=== PATIENT | female | born 1990 ===

== ENCOUNTER 2020-02-20 04:51 | Emergency (ER) | payer SELFPAY ==
[2020-02-20 05:46] LABS: Bacteria,Urine 1+ /HPF (Negative); Bilirubin,Urine NEG (Negative); Blood,Urine NEG (Negative); Color,Urine Yellow (Yellow); Mucus,Urine 1+ /HPF; Protein,Urine <15 mg/dL mg/dL (Negative)
[2020-02-20 06:16] LABS: Basophils % (Auto) 0.3 % (0.0-1.8); Eosinophils % (Auto) 2.1 % (0.0-4.3); Lymphocytes % (Auto) 17.9 % (13.4-35.0); Monocytes % (Auto) 9.5 % (0.0-7.3)
[2020-02-20 06:18] LABS: Eosinophils # (Auto) 0.3 K/mm3 (0.0-0.4); Hematocrit 32.8 % (30.3-42.9); Hemoglobin 11.5 gm/dl (10.1-14.3); Lymphocytes # (Auto) 2.7 K/mm3 (1.2-5.4); Mean Corpuscular HGB Conc 35 % (30-34); Mean Corpuscular Volume 87 fl (79-97); Monocytes # (Auto) 1.4 K/mm3 (0.0-0.8); Platelet Count 364 K/mm3 (140-440); Red Blood Count 3.77 M/mm3 (3.65-5.03); Red Cell Distribution Width 12.3 % (13.2-15.2)
[2020-02-20 06:24] LABS: Alanine Aminotransferase 24 units/L (7-56); Albumin 3.4 g/dL (3.9-5); Blood Urea Nitrogen 11 mg/dL (7-17); Calcium 8.8 mg/dL (8.4-10.2); Hemolysis Index 2
[2020-02-20 06:27] LABS: BUN/Creatinine Ratio 22
--- NOTE | 2020-02-20 08:45 | Emergency Department Report ---
ED Abdominal Pain HPI - General Chief Complaint: Abdominal Pain Stated Complaint: ABDOMINAL PAIN Time Seen by Provider: 02/20/20 08:29 Source: patient Mode of arrival: Ambulatory Limitations: No Limitations - History of Present Illness Initial Comments: 29-year-old female presents to the emergency room complaining of suprapubic abdominal pain x1 week. Patient states that she does have dysuria urinary urgency and frequency. She denies any fever chills no nausea no vomiting. She reports no known drug allergies and currently takes no medica tions on a daily basis. MD Complaint: abdominal pain Onset/Timin -: week(s) Location: suprapubic Severity scale (0 -10): 7 Quality: stabbing, sharp Consistency: intermittent Improves With: nothing Worsens With: other (Urinates) Associated Symptoms: denies other symptoms - Related Data Previous Rx's Medication Instructions Recorded Last Taken Type Amoxicillin/K Clav Tab [Augmentin 1 tab PO Q12HR 7 Days #14 tab 02/20/20 Unknown Rx 875 mg] Allergies Allergy/AdvReac Type Severity Reaction Status Date / Time No Known Allergies Allergy Unverified 02/20/20 04:59 ED Review of Systems ROS: Stated complaint: ABDOMINAL PAIN Other details as noted in HPI Comment: All other systems reviewed and negative ED Past Medical Hx - Past Medical History Previous Medical History?: No - Surgical History Past Surgical History?: No - Social History Smoking Status: Current Every Day Smoker Substance Use Type: Alcohol - Medications Home Medications: Home Medications Medication Instructions Recorded Confirmed Last Taken Type Amoxicillin/K Clav Tab [Augmentin 1 tab PO Q12HR 7 Days #14 tab 02/20/20 Unknown Rx 875 mg] ED Physical Exam - General Limitations: No Limitations General appearance: alert, in no apparent distress - Head Head exam: Present: atraumatic, normocephalic - Eye Eye exam: Present: normal appearance - ENT ENT exam: Present: mucous membranes moist - Neck Neck exam: Present: normal inspection, full ROM - Respiratory Respiratory exam: Present: normal lung sounds bilaterally. Absent: respiratory distress - Cardiovascular Cardiovascular Exam: Present: regular rate - GI/Abdominal GI/Abdominal exam: Present: soft, tenderness (Suprapubic). Absent: distended - Rectal Rectal exam: Present: deferred - Extremities Exam Extremities exam: Present: normal inspection, full ROM - Back Exam Back exam: Present: normal inspection - Neurological Exam Neurological exam: Present: alert, oriented X3, normal gait - Psychiatric Psychiatric exam: Present: normal affect, normal mood - Skin Skin exam: Present: warm, dry, intact, normal color. Absent: rash ED Medical Decision Making - Lab Data Result diagrams: 02/20/20 05:09 02/20/20 05:09 - Medical Decision Making 29-year-old female presents to the emergency room complaining of suprapubic abdominal pain x1 week. Patient states that she does have dysuria urinary urgency and frequency. She denies any fever chills no nausea no vomiting. She reports no known drug allergies and currently takes no medi cations on a daily basis. Patient appears to have a urinary tract infection. Will send out urine cultures place patient on Augmentin increase her fluid intake follow-up with your WATERPROOF COATING MACHINE TENDER or primary care provider. Critical care attestation.: If time is entered above; I have spent that time in minutes in the direct care of this critically ill patient, excluding procedure time. ED Disposition Clinical Impression: UTI (urinary tract infection) Disposition: TO HOME OR SELFCARE Is pt being admited?: No Does the pt Need Aspirin: No Condition: Stable Instructions: Abdominal Pain (ED), Urinary Tract Infection in Women (ED) Additional Instructions: Complete antibiotics as prescribed. Tylenol or Motrin for abdominal pain. Increase your water intake advance your diet as tolerated. Void after intercourse. Prescriptions: Amoxicillin/K Clav Tab [Augmentin 875 mg] 1 tab PO Q12HR 7 Days #14 tab Referrals: PRIMARY CARE [Primary Care Provider] - 3-5 Days [facility] [Provider Group] - 3-5 Days Forms: Work/School Release Form(ED)
[2020-02-20 08:49] VITALS: BP 108/60
[2020-02-20 11:45] LABS: HCG Qualitative,Urine Negative (Negative)
== END 2020-02-20 08:59 | disposition home or self-care (01) ==
LOC: ED 04:51
DX: N39.0 Urinary tract infection, site not specified (principal); F17.200 Nicotine dependence, unspecified, uncomplicated; Z79.899 Other long term (current) drug therapy
CPT/HCPCS: 36415; 80053; 81001; 81025; 83690; 85025; 87086; 99283

== ENCOUNTER 2020-12-29 00:53 | Emergency (ER) | payer SELFPAY ==
[2020-12-29] MEDS ORDERED: SODIUM CHLORIDE 0.9% 1000 ML 1,000 ML IV ONE (01:04)
--- NOTE | 2020-12-29 01:11 | Emergency Department Report ---
HPI - General Chief Complaint: Overdose Time Seen by Provider: 12/29/20 01:01 - [facility] HPI: This is a 30-year-old female who presents to the emergency department via EMS after the patient swallowed a bag full of 1 to 2 g of heroin just prior to presentation. The patient admits to using heroin this evening, as well as a daily use of about 0.5 g. She says that someone handed her the small bag of heroin when police got near. At the time my examination the patient is awake, oriented, and just complains of feeling tired. She denies any past medical hist ory. She was not given anything for her symptoms prior to presentation this evening. ED Past Medical Hx - Past Medical History Hx Hypertension: Yes Additional medical history: heroin use since 20yo - Social History Smoking Status: Current Every Day Smoker - Medications Home Medications: Home Medications Medication Instructions Recorded Confirmed Last Taken Type Amoxicillin/K Clav Tab [Augmentin 1 tab PO Q12HR 7 Days #14 tab 02/20/20 Unknown Rx 875 mg] ED Review of Systems ROS: Stated complaint: OVERDOSE Other details as noted in HPI Comment: All other systems reviewed and negative Constitutional: other (fatigue). denies: chills, fever Eyes: denies: eye pain, vision change ENT: denies: ear pain, throat pain Respiratory: denies: cough, shortness of breath Cardiovascular: denies: chest pain, palpitations Gastrointestinal: denies: abdominal pain, vomiting Genitourinary: denies: dysuria, discharge Musculoskeletal: denies: back pain, arthralgia Skin: denies: rash, lesions Neurological: denies: headache, weakness Physical Exam - Physical Exam Vital Signs: Vital Signs 12/29/20 01:05 Temperature 99.1 F Pulse Rate 93 H Respiratory 14 Rate Blood Pressure 128/69 [Left] O2 Sat by Pulse 96 Oximetry Physical Exam: GENERAL: The patient is ill-appearing.. HENT: Normocephalic. Atraumatic. Patient has moist mucous membranes. EYES: Pupils equal reactive to light bilaterally. NECK: Supple. Trachea is midline. CHEST/LUNGS: Clear to auscultation. There is no respiratory distress noted. HEART/CARDIOVASCULAR: Regular. There is no tachycardia. There is no murmur. ABDOMEN: Abdomen is soft, nontender. Patient has normal bowel sounds. SKIN: Skin is warm and dry. NEURO: The patient is very sleepy. She is easily arousable and once awake she is oriented, AAO x3. The patient has no focal neurologic deficits. Normal speech. Cranial nerves II through XII grossly intact. MUSCULOSKELETAL: There is no tenderness or deformity. There is no limitation range of motion. ED Course Vital Signs 12/29/20 01:05 Temperature 99.1 F Pulse Rate 93 H Respiratory 14 Rate Blood Pressure 128/69 [Left] O2 Sat by Pulse 96 Oximetry - Consultations Consultation #1: 12/29/20 01:53 I contacted the poison control. I spoke with Amanda, who gave recommendations after speaking with and on behalf of the pig machine crane operator on-call. They have recommended to give activated charcoal with sorbitol at 1 g/kg. They do not recommend giving Narcan at this time unless the patient's start to display signs of respiratory depression. The pig machine crane operator recommends that the patient be admitted to the hospital for about 24 hours in the hopes that they can monitor for 2 different bowel movements to see if the baggies come out. ED Medical Decision Making - Lab Data Result diagrams: 12/29/20 01:10 12/29/20 01:10 Lab Results 12/29/20 12/29/20 12/29/20 Range/Units 01:10 01:10 01:10 WBC 8.3 (4.5-11.0) K/mm3 RBC 4.41 (3.65-5.03) M/mm3 Hgb 11.7 (10.1-14.3) gm/dl Hct 35.4 (30.3-42.9) % MCV 80 (79-97) fl MCH 27 L (28-32) pg MCHC 33 (30-34) % RDW 14.5 (13.2-15.2) % Plt Count 373 (140-440) K/mm3 Lymph % (Auto) 21.0 (13.4-35.0) % Stephens % (Auto) 10.5 H (0.0-7.3) % Eos % (Auto) 6.7 H (0.0-4.3) % Baso % (Auto) 0.4 (0.0-1.8) % Lymph # (Auto) 1.7 (1.2-5.4) K/mm3 [place] # (Auto) 0.9 H (0.0-0.8) K/mm3 Eos # (Auto) 0.6 H (0.0-0.4) K/mm3 Baso # (Auto) 0.0 (0.0-0.1) K/mm3 Seg Neutrophils % 61.4 (40.0-70.0) % Seg Neutrophils # 5.1 (1.8-7.7) K/mm3 Sodium 139 (137-145) mmol/L Potassium 4.2 (3.6-5.0) mmol/L Chloride 104.8 (98-107) mmol/L Carbon Dioxide 27 (22-30) mmol/L Anion Gap 11 mmol/L BUN 13 (7-17) mg/dL Creatinine 0.7 (0.6-1.2) mg/dL Estimated GFR > 60 ml/min BUN/Creatinine Ratio 19 % Glucose 88 (65-100) mg/dL Calcium 8.3 L (8.4-10.2) mg/dL Total Bilirubin 0.50 (0.1-1.2) mg/dL AST 27 (5-40) units/L ALT 30 (7-56) units/L Alkaline Phosphatase 76 (35-129) units/L Total Protein 7.2 (6.3-8.2) g/dL Albumin 3.5 L (3.9-5) g/dL Albumin/Globulin Ratio 0.9 % HCG, Qual (Negative) Salicylates (2.8-20.0) mg/dL Acetaminophen (10.0-30.0) ug/mL Plasma/Serum Alcohol < 0.01 (0-0.07) % 12/29/20 12/29/20 12/29/20 Range/Units 01:10 01:10 01:16 WBC (4.5-11.0) K/mm3 RBC (3.65-5.03) M/mm3 Hgb (10.1-14.3) gm/dl Hct (30.3-42.9) % MCV (79-97) fl MCH (28-32) pg MCHC (30-34) % RDW (13.2-15.2) % Plt Count (140-440) K/mm3 Lymph % (Auto) (13.4-35.0) % Stephens % (Auto) (0.0-7.3) % Eos % (Auto) (0.0-4.3) % Baso % (Auto) (0.0-1.8) % Lymph # (Auto) (1.2-5.4) K/mm3 Stephens # (Auto) (0.0-0.8) K/mm3 Eos # (Auto) (0.0-0.4) K/mm3 Baso # (Auto) (0.0-0.1) K/mm3 Seg Neutrophils % (40.0-70.0) % Seg Neutrophils # (1.8-7.7) K/mm3 Sodium (137-145) mmol/L Potassium (3.6-5.0) mmol/L Chloride (98-107) mmol/L Carbon Dioxide (22-30) mmol/L Anion Gap mmol/L BUN (7-17) mg/dL Creatinine (0.6-1.2) mg/dL Estimated GFR ml/min BUN/Creatinine Ratio % Glucose (65-100) mg/dL Calcium (8.4-10.2) mg/dL Total Bilirubin (0.1-1.2) mg/dL AST (5-40) units/L ALT (7-56) units/L Alkaline Phosphatase (35-129) units/L Total Protein (6.3-8.2) g/dL Albumin (3.9-5) g/dL Albumin/Globulin Ratio % HCG, Qual Negative (Negative) Salicylates < 0.3 L (2.8-20.0) mg/dL Acetaminophen 5.0 L (10.0-30.0) ug/mL Plasma/Serum Alcohol (0-0.07) % - EKG Data -: EKG Interpreted by [place] EKG shows normal: sinus rhythm, axis, intervals, QRS complexes, ST-T waves Rate: normal - EKG Data When compared to previous EKG there are: previous EKG unavailable Interpretation: normal EKG - Radiology Data Radiology results: image reviewed interpreted by me: Chest x-ray does not show any acute process. There are no pleural effusions, obvious pneumonia and there is no pneumothorax. No widened mediastinum. Abdominal x-ray shows nonspecific nonobstructive bowel gas. No radiopaque foreign body seen. Increased stool volume. No free air. - Medical Decision Making This patient presents after she swallowed a baggy with about 1 to 2 g of heroin as she, and 2 of her other friends/acquaintances who are also patients, were about to get pulled over by the police. The patient does admit to using heroin already earlier in the evening. She does appear intoxicated. She is very sleepy, but is easily arousable. Once awake she is oriented, AAO x3. She will go right back to sleep if not continuously stimulated. However she does not appear to have any focal, motor or sensory deficits and cranial nerves are intact. Poison control was contacted and the recommendations of the pig machine crane operator include activated charcoal with sorbitol and an observation admission. They did not recommend that Narcan be given unless there is signs of respiratory depression. An acute abdominal series was done but it did not show any acute process and no radiopaque foreign body was seen to identify the baggy of heroin. Labs, thus far, have been mostly unremarkable including CBC, metabolic panel, acetaminophen, salicylate, blood alcohol level, and the patient is not . We are still waiting for a urine sample for urinalysis and UDS. Patient will be admitted to the hospital was accepted for admission by Dr. Braga. Critical Care Time: No Critical care attestation.: If time is entered above; I have spent that time in minutes in the direct care of this critically ill patient, excluding procedure time. ED Disposition Clinical Impression: Encounter for observation for suspected toxic effect from ingested substance, Heroin abuse Heroin overdose Qualifiers: Encounter type: initial encounter Injury intent: undetermined intent Qualified Code(s): T40.1X4A - Poisoning by heroin, undetermined, initial encounter Disposition: 09 OP ADMIT IP TO THIS HOSP Is pt being admited?: Yes Condition: Fair Time of Disposition: 03:42
[2020-12-29] MEDS ORDERED: CHARCOAL/SORBITOL SOLUTION 25 GM/120 ML PO ONE (01:28)
[2020-12-29 01:32] LABS: Basophils % (Auto) 0.4 % (0.0-1.8); Eosinophils # (Auto) 0.6 K/mm3 (0.0-0.4); Eosinophils % (Auto) 6.7 % (0.0-4.3); Hematocrit 35.4 % (30.3-42.9); Hemoglobin 11.7 gm/dl (10.1-14.3); Lymphocytes # (Auto) 1.7 K/mm3 (1.2-5.4); Mean Corpuscular HGB Conc 33 % (30-34); Mean Corpuscular Volume 80 fl (79-97); Monocytes # (Auto) 0.9 K/mm3 (0.0-0.8); Monocytes % (Auto) 10.5 % (0.0-7.3); Platelet Count 373 K/mm3 (140-440); Red Blood Count 4.41 M/mm3 (3.65-5.03); Red Cell Distribution Width 14.5 % (13.2-15.2)
[2020-12-29] MEDS ORDERED: ONDANSETRON 4 MG/2 ML INJ IV ONE (01:40)
[2020-12-29 01:44] LABS: Alanine Aminotransferase 30 units/L (7-56); Albumin 3.5 g/dL (3.9-5); Blood Urea Nitrogen 13 mg/dL (7-17); Calcium 8.3 mg/dL (8.4-10.2); Hemolysis Index 0
[2020-12-29 01:45] LABS: BUN/Creatinine Ratio 19
--- NOTE | 2020-12-29 02:50 | XRay Report ---
XR abd series w cxr 1V INDICATION / CLINICAL INFORMATION: swallowed a bag of heroin COMPARISON: None available. FINDINGS/IMPRESSION: Low lung volumes. Lungs are clear consolidation. No pleural effusion or pneumothorax. Bowel gas patte rn is nonobstructive. Moderate colonic stool burden. No radiopaque foreign body identified in the [address] or abdomen. Signer Name: Chava Mancilla MD Signed: 12/29/2020 2:45 AM Workstation Name: [id number]
[2020-12-29] MEDS ORDERED: oxyCODONE /ACETAMINOPHEN 5-325MG TAB PO PRN (03:44)
[2020-12-29] MEDS ORDERED: ALUM-MAG HYDROXIDE-SIMETHICONE 200-200-20MG/5ML ORAL LIQD 30 ML PO PRN (03:44)
[2020-12-29] MEDS ORDERED: HYDROmorphone 1 MG/1 ML INJ IV PRN ×2 (03:44)
[2020-12-29] MEDS ORDERED: HYDROcodone/ACETAMINOPHEN 5-325 MG TAB PO PRN (03:44)
[2020-12-29] MEDS ORDERED: MORPHINE 2 MG/1 ML INJ IV PRN (03:44)
[2020-12-29] MEDS ORDERED: ACETAMINOPHEN 325 MG TAB PO PRN (03:44)
[2020-12-29] MEDS ORDERED: ONDANSETRON 4 MG/2 ML INJ IV PRN (03:44)
[2020-12-29] MEDS ORDERED: MAGNESIUM HYDROXIDE (MOM) ORAL LIQD UDC PO PRN (03:44)
--- NOTE | 2020-12-29 03:44 | History and Physical Report ---
History of Present Illness Date of examination: 12/29/20 Date of admission: 12/29/20 Chief complaint: Heiron abuse History of present illness: This is a 30-year-old female who presents to the emergency department via EMS after the patient swallowed a bag full of 1 to 2 g of heroin just prior to presentation. The patient admits to using heroin this evening, as well as a daily use of about 0.5 g. She says that someone handed her the small bag of heroin when police got near. At the time my examination the patient is awake, oriented, and just complains of feeling tired. She denies any past medical history. She was not given anything for her symptoms prior to presentation this evening. ED work-up shows WBC 8.3, hemoglobin 11.7, platelets 373 creatinine 0.7 serum glucose 88 checks x-ray no pleural effusion or pneumothorax- bowel gas is nonobstructive, moderate colonic stool burden, no radiopaque foreign body identified in the chest or abdomen. Patient seen in the ED at bedside. Patient was sleepy but easy to arouse. She admits Gorin use but denies alcohol and tobacco use. I reviewed his vital signs, medication record and the lab values. No acute finding Past History Past Medical History: hypertension Past Surgical History: No surgical history Social history: IV drug use, other (homeless and drug abuse) Medications and Allergies Allergies Allergy/AdvReac Type Severity Reaction Status Date / Time No Known Allergies Allergy Verified 12/29/20 01:10 Home Medications Medication Instructions Recorded Confirmed Last Taken Type Amoxicillin/K Clav Tab [Augmentin 1 tab PO Q12HR 7 Days #14 tab 02/20/20 Unknown Rx 875 mg] Review of Systems Cardiovascular: no chest pain Respiratory: no wheezing Gastrointestinal: abdominal pain Rectal: no hemorrhoids Musculoskeletal: no neck stiffness Integumentary: no rash, no pruritis Neurological: no seizures Psychiatric: anxiety Hematologic/Lymphatic: no easy bruising, no easy bleeding Allergic/Immunologic: no urticaria Exam - Constitutional Vitals: Temp Pulse Resp BP Pulse Ox 99.1 F 93 H 14 128/69 96 12/29/20 01:05 12/29/20 01:05 12/29/20 01:05 12/29/20 01:05 12/29/20 01:05 General appearance: Present: no acute distress, well-nourished - EENT Eyes: Present: PERRL ENT: hearing intact, clear oral mucosa - Neck Neck: Present: supple, normal ROM - Respiratory Respiratory effort: normal Respiratory: bilateral: CTA - Cardiovascular Heart Sounds: Present: S1 & S2. Absent: rub, click - Extremities Extremities: pulses symmetrical, No edema Peripheral Pulses: within normal limits - Abdominal General gastrointestinal: Present: soft, non-tender, non-distended, normal bowel sounds Female genitourinary: Present: normal - Integumentary Integumentary: Present: clear, warm, dry - Musculoskeletal Musculoskeletal: gait normal, strength equal bilaterally - Psychiatric Psychiatric: appropriate mood/affect, intact judgment & insight - Neurologic Neurologic: CNII-XII intact, moves all extremities - Allied Health Allied health notes reviewed: nursing Results - Labs CBC & Chem 7: 12/29/20 01:10 12/29/20 01:10 Labs: Abnormal lab results 12/29/20 12/29/20 12/29/20 Range/Units 01:10 01:10 01:10 MCH 27 L (28-32) pg [place] % (Auto) 10.5 H (0.0-7.3) % Eos % (Auto) 6.7 H (0.0-4.3) % [place] # (Auto) 0.9 H (0.0-0.8) K/mm3 Eos # (Auto) 0.6 H (0.0-0.4) K/mm3 Calcium 8.3 L (8.4-10.2) mg/dL Albumin 3.5 L (3.9-5) g/dL Salicylates < 0.3 L (2.8-20.0) mg/dL Acetaminophen (10.0-30.0) ug/mL 12/29/20 Range/Units 01:10 MCH (28-32) pg [place] % (Auto) (0.0-7.3) % Eos % (Auto) (0.0-4.3) % [place] # (Auto) (0.0-0.8) K/mm3 Eos # (Auto) (0.0-0.4) K/mm3 Calcium (8.4-10.2) mg/dL Albumin (3.9-5) g/dL Salicylates (2.8-20.0) mg/dL Acetaminophen 5.0 L (10.0-30.0) ug/mL Assessment and Plan - Patient Problems (1) Drug abuse and dependence Current Visit: Yes Status: Acute Plan to address problem: Patient admits heroine dependence patient swallowed a bag full of 1 to 2 g of heroin Patient was treated in the ED At the time of my assessment patient alert oriented x3 patient reports abdominal pain. (2) Hypertension Current Visit: Yes Status: Acute Plan to address problem: Patient reports history of high blood pressure but not on any medicine Monitor vital signs every 4 hours As needed hydralazine (3) DVT prophylaxis Current Visit: Yes Status: Acute Plan to address problem: SCD
[2020-12-29] MEDS ORDERED: SODIUM CHLORIDE 0.9% 1000 ML 1,000 ML IV SCH (03:45)
[2020-12-29 04:04] VITALS: BP 121/75
[2020-12-29 09:38] LABS: Amphetamine Screen,Urine PRESUMPTIVE POSITIVE; Benzodiazepines Screen,Urine PRESUMPTIVE NEGATIVE; Cannabinoid Screen,Urine PRESUMPTIVE NEGATIVE; Cocaine Screen,Urine PRESUMPTIVE NEGATIVE; Methadone Screen,Urine PRESUMPTIVE NEGATIVE; Opiate Screen,Urine PRESUMPTIVE POSITIVE
--- NOTE | 2020-12-29 09:53 | Discharge Summary ---
Providers - Providers Date of Admission: 12/29/20 03:44 Attending physician: JOSÉ MIGUEL WONG MD Primary care physician: HEALTH INFORMATION MANAGER Hospitalization Reason for admission: DRUG OVERDOSE Condition: Stable Hospital course: This is a 30-year-old female who presents to the emergency department via EMS after the patient swallowed a bag full of 1 to 2 g of heroin just prior to presentation. The patient admits to using heroin this evening, as well as a daily use of about 0.5 g. She says that someone handed her the small bag of heroin when police got near. At the time my examination the patient is awake, oriented, and just complains of feeling tired. She denies any past medical history. She was not given anything for her symptoms prior to presentation this evening. ED work-up shows WBC 8.3, hemoglobin 11.7, platelets 373 creatinine 0.7 serum glucose 88 checks x-ray no pleural effusion or pneumothorax- bowel gas is nonobstructive, moderate colonic stool burden, no radiopaque foreign body identified in the chest or abdomen. Patient seen in the ED at bedside. Patient was sleepy but easy to arouse. She admits Gorin use but denies alcohol and tobacco use. I reviewed his vital signs, medication record and the lab values. No acute finding patient has had 4 bm since getting activate charcol. she has no abdominal pain She is clinical stable, ambulating. Extensive counselling give for 15 mins on drug abuse, risk associated and need to stop. She verbalized understanding. (1) Drug abuse and dependence -OPIOIDS AND AMPHETAMINES (2) Hypertension Disposition: DC-01 TO HOME OR SELFCARE Final Discharge Diagnosis (Prints w/discharge instructions): DRUG OVERDOSE Time spent for discharge: 35 mins Core Measure Documentation - Palliative Care Palliative Care/ Comfort Measures: Not Applicable - Core Measures Any of the following diagnoses?: none Exam - Constitutional Vitals: Temp Pulse Resp BP Pulse Ox 99.1 F 76 13 121/75 98 12/29/20 01:05 12/29/20 06:01 12/29/20 06:01 12/29/20 06:01 12/29/20 06:01 General appearance: Present: no acute distress, well-nourished - EENT Eyes: Present: PERRL, EOM intact ENT: hearing intact - Neck Neck: Present: supple, normal ROM - Respiratory Respiratory effort: normal Respiratory: bilateral: CTA - Cardiovascular Rhythm: regular Heart Sounds: Present: S1 & S2. Absent: systolic murmur, diastolic murmur - Extremities Extremities: no ischemia, pulses intact, No edema, normal temperature, Full ROM Peripheral Pulses: within normal limits - Abdominal General gastrointestinal: Present: soft, non-tender, non-distended - Integumentary Integumentary: Present: clear, warm - Musculoskeletal Musculoskeletal: strength equal bilaterally - Psychiatric Psychiatric: appropriate mood/affect, intact judgment & insight - Neurologic Neurologic: CNII-XII intact, moves all extremities - Allied Health Allied health notes reviewed: nursing Plan Activity: advance as tolerated, fall precautions Diet: low fat Special Instructions: record daily weights, record daily BP diary, smoking cessation Follow up with: PRIMARY CAREMD [Primary Care Provider] - 3-5 Days
[2020-12-29 12:22] LABS: Bacteria,Urine 1+ /HPF (Negative); Bilirubin,Urine NEG (Negative); Blood,Urine LG (Negative); Color,Urine Yellow (Yellow); Mucus,Urine FEW /HPF
--- NOTE | 2020-12-30 17:57 | Electrocardiograph Report ---
[facility] Test Date: 2020-12-29 Test Time: 01:50:32 Pat Name: BERLIN WANG Department: Room: [place] [id number] Gender: F Track Repair Worker: REINALDO : 1990 Requested By: RUFINA SOMMER Order Number: [id number] Reading MD: Maggi Colunga Measurements Intervals [place] Rate: 94 P: 16 CA: 142 QRS: 37 QRSD: 76 T: 22 QT: 344 QTc: 430 Interpretive Statements Sinus rhythm No previous ECG available for comparison Electronically Signed On 12-30-2020 17:56:43 EDT by Maggi Colunga
== END 2020-12-29 09:51 | disposition home or self-care (01) ==
LOC: ED 00:53 → 4A 03:44 → UNDOADMOB 03:44 → ED 09:51
DX: T40.1X4A Poisoning by heroin, undetermined, initial encounter (principal); F11.10 Opioid abuse, uncomplicated; I10 Essential (primary) hypertension; F17.200 Nicotine dependence, unspecified, uncomplicated; Z03.6 Encounter for observation for suspected toxic effect from ingested substance ruled out; Z79.899 Other long term (current) drug therapy; Y93.89 Activity, other specified
CPT/HCPCS: 36415; 74022; 80053; 80307; 81001; 84703; 85025; 87086; 93005; 96361; 96374; 99285; J2405; J7030; 80320; G0480